=== PATIENT | male | born 1985 | race Two or more races ===

== ENCOUNTER 2022-08-17 17:45 | Inpatient (IN) | payer OTHER ==
[2022-08-17 18:20] VITALS: BMI 33.3
[2022-08-17] MEDS ORDERED: MELATONIN 5 MG TABLETS PO SCH (22:00)
[2022-08-17] MEDS ORDERED: ACETAMINOPHEN 325 MG TABLET (FP) PO PRN (22:42)
[2022-08-17] MEDS ORDERED: LOPERAMIDE HCL 2 MG CAPSULE PO PRN (22:42)
[2022-08-17] MEDS ORDERED: hydrOXYzine PAMOATE 25 MG CAPSULE (FP) PO PRN (22:42)
[2022-08-17] MEDS ORDERED: NICOTINE POLACRILEX 2 MG GUM BC PRN (22:42)
[2022-08-17] MEDS ORDERED: POLYETHYLENE GLYCOL (HEALTHYLAX) 3350 17 GM PACKET PO PRN (22:42)
[2022-08-17] MEDS ORDERED: IBUPROFEN 400 MG TABLET (FP) PO PRN (22:42)
[2022-08-17] MEDS ORDERED: MAGNESIUM HYDROX 2400MG/30ML ORAL SUSPENSION 30 ML CUP PO PRN (22:42)
[2022-08-17] MEDS ORDERED: MAG HYDROX/AL HYDROX/SIMETH 30 ML UNIT-DOSE CUP PO PRN (22:42)
[2022-08-17] MEDS ORDERED: NALOXONE HCL 0.4 MG/ML VIAL IM PRN (22:42)
[2022-08-17] MEDS ORDERED: BENZONATATE 200 MG CAPSULE PO PRN (22:42)
[2022-08-17] MEDS ORDERED: IBUPROFEN 600 MG TABLET (FP) PO PRN (22:42)
[2022-08-17] MEDS ORDERED: NALOXONE HCL (KLOXXADO) 8 MG SPRAY NS PRN (22:42)
[2022-08-17] MEDS ORDERED: BENZOCAINE/MENTHOL (CHLORASEPTIC ) LOZENGE MM PRN (22:42)
[2022-08-17] MEDS ORDERED: guaiFENesin 600 MG TABLET.ER (FP) PO PRN (22:42)
[2022-08-18 02:11] VITALS: BP 143/96; PULSE 93; RESP 18; TEMP 97.7
[2022-08-18] MEDS ORDERED: NICOTINE 14 MG/24 HOURS TOPICAL PATCH TD SCH (10:00)
[2022-08-18] MEDS ORDERED: PRENATAL VITAMINS W/ FOLIC ACID TABLET (FP) PO SCH (10:00)
[2022-08-18 11:16] LABS: HEMATOCRIT 41.6 % (35.4-49); HEMOGLOBIN 13.9 GM/dL (11.7-16.9); MCH 27.6 pg (25.7-33.7); MCHC 33.4 g/dl (32.0-35.9); MEAN CELL VOLUME 82.7 fl (80-96); PLATELET COUNT 297 10^3/uL (134-434); RBC 5.03 M/mm3 (4.00-5.60); RDW 14.2 % (11.9-15.9); WHITE BLOOD COUNT 7.4 K/mm3 (4.0-10.0)
[2022-08-18 11:17] LABS: BLOOD UREA NITROGEN 22.6 mg/dL (7-18); CALCIUM 8.8 mg/dL (8.5-10.1)
[2022-08-18 11:18] LABS: ALBUMIN 3.2 g/dl (3.4-5.0)
[2022-08-18 11:22] LABS: BILIRUBIN,TOTAL 0.3 mg/dL (0.2-1); TOT PROT 6.6 g/dl (6.4-8.2)
[2022-08-18 11:40] LABS: SYPHILIS W/ RPR CONF NON-REACTIVE (NONREACTIVE)
[2022-08-18] MEDS ORDERED: THIAMINE HCL 100 MG TABLET (FP) PO SCH (22:00)
== END 2022-08-18 16:44 | disposition left against medical advice (07) | DRG 770 ==
LOC: YASAS 17:45 → Y5N 08-18 01:33
PROVIDERS: ADMIT Allergy & Immunology; ATTEND Psychiatry & Neurology Pain Medicine
PROC: HZ42ZZZ Group Counseling for Substance Abuse Treatment, Cognitive-Behavioral (ICD-10-PCS; principal; 2022-08-18)
DX: F16.20 Hallucinogen dependence, uncomplicated (principal); F12.20 Cannabis dependence, uncomplicated; F19.24 Other psychoactive substance dependence with psychoactive substance-induced mood disorder; I10 Essential (primary) hypertension; J45.20 Mild intermittent asthma, uncomplicated; M54.50 Low back pain, unspecified; G89.29 Other chronic pain; Z87.820 Personal history of traumatic brain injury
CPT/HCPCS: 36415; 80053; 85027; 86780; 86803; C9803-CS; U0003; U0005

== ENCOUNTER 2022-08-20 10:13 | Inpatient (IN) | payer OTHER ==
[2022-08-20 10:40] VITALS: BMI 35.4
[2022-08-20] MEDS ORDERED: POLYETHYLENE GLYCOL (HEALTHYLAX) 3350 17 GM PACKET PO PRN (11:55)
[2022-08-20] MEDS ORDERED: NICOTINE 10 MG CARTRIDGE (INHALER) IH PRN (11:55)
[2022-08-20] MEDS ORDERED: NALOXONE HCL (KLOXXADO) 8 MG SPRAY NS PRN (11:55)
[2022-08-20] MEDS ORDERED: BENZONATATE 200 MG CAPSULE PO PRN (11:55)
[2022-08-20] MEDS ORDERED: BENZOCAINE/MENTHOL (CHLORASEPTIC ) LOZENGE MM PRN (11:55)
[2022-08-20] MEDS ORDERED: guaiFENesin 600 MG TABLET.ER (FP) PO PRN (11:55)
[2022-08-20] MEDS ORDERED: MAG HYDROX/AL HYDROX/SIMETH 30 ML UNIT-DOSE CUP PO PRN (11:55)
[2022-08-20] MEDS ORDERED: LOPERAMIDE HCL 2 MG CAPSULE PO PRN (11:55)
[2022-08-20] MEDS ORDERED: MAGNESIUM HYDROX 2400MG/30ML ORAL SUSPENSION 30 ML CUP PO PRN (11:55)
[2022-08-20] MEDS ORDERED: NALOXONE HCL 0.4 MG/ML VIAL IM PRN (11:55)
[2022-08-20 16:37] LABS: HEMATOCRIT 41.9 % (35.4-49); HEMOGLOBIN 13.9 GM/dL (11.7-16.9); MCH 27.9 pg (25.7-33.7); MCHC 33.3 g/dl (32.0-35.9); MEAN CELL VOLUME 83.7 fl (80-96); MEAN PLT VOLUME 8.9 fl (7.5-11.1); PLATELET COUNT 306 10^3/uL (134-434); RDW 14.8 % (11.9-15.9); WHITE BLOOD COUNT 10.9 K/mm3 (4.0-10.0)
[2022-08-20 16:40] LABS: ALBUMIN 3.4 g/dl (3.4-5.0); CALCIUM 8.8 mg/dL (8.5-10.1)
[2022-08-20 16:41] LABS: BLOOD UREA NITROGEN 21.1 mg/dL (7-18)
[2022-08-20 16:44] LABS: CREATININE 0.9 mg/dL (0.55-1.3)
[2022-08-20 16:46] LABS: BILIRUBIN,TOTAL 0.2 mg/dL (0.2-1); TOT PROT 6.7 g/dl (6.4-8.2)
[2022-08-20 17:06] LABS: SYPHILIS W/ RPR CONF NON-REACTIVE (NONREACTIVE)
[2022-08-20] MEDS: MELATONIN 5 MG TABLETS PO SCH (21:49)
[2022-08-20] MEDS: THIAMINE HCL 100 MG TABLET (FP) PO SCH (21:49)
[2022-08-21] MEDS: PRENATAL VITAMINS W/ FOLIC ACID TABLET (FP) PO SCH (10:09)
[2022-08-21 11:42] LABS: PH,URINE 5.5 (5.0-8.0); URINE APPEARANCE CLEAR; URINE BILIRUBIN NEGATIVE (NEGATIVE); URINE COLOR YELLOW; URINE GLUCOSE (UA) NEGATIVE (NEGATIVE); URINE KETONE NEGATIVE (NEGATIVE); URINE LEUK ESTERASE NEGATIVE (NEGATIVE); URINE NITRITE NEGATIVE (NEGATIVE); URINE PROTEIN NEGATIVE (NEGATIVE); URINE UROBILINOGEN 0.2 mg/dL (0.2-1.0)
[2022-08-21] MEDS: THIAMINE HCL 100 MG TABLET (FP) PO SCH (21:33)
[2022-08-21] MEDS: MELATONIN 5 MG TABLETS PO SCH (21:33)
[2022-08-21] MEDS: IBUPROFEN 400 MG TABLET (FP) PO PRN (21:34)
[2022-08-22] MEDS: PRENATAL VITAMINS W/ FOLIC ACID TABLET (FP) PO SCH (10:28)
[2022-08-22] MEDS: THIAMINE HCL 100 MG TABLET (FP) PO SCH (21:15)
[2022-08-22] MEDS: MELATONIN 5 MG TABLETS PO SCH (21:15)
[2022-08-23] MEDS: PRENATAL VITAMINS W/ FOLIC ACID TABLET (FP) PO SCH (10:03)
[2022-08-23] MEDS: IBUPROFEN 600 MG TABLET (FP) PO PRN (10:04)
[2022-08-23] MEDS: IBUPROFEN 400 MG TABLET (FP) PO PRN (21:20)
[2022-08-23] MEDS: MELATONIN 5 MG TABLETS PO SCH (21:20)
[2022-08-23] MEDS: THIAMINE HCL 100 MG TABLET (FP) PO SCH (21:20)
[2022-08-24] MEDS: PRENATAL VITAMINS W/ FOLIC ACID TABLET (FP) PO SCH (10:15)
[2022-08-24] MEDS: IBUPROFEN 400 MG TABLET (FP) PO PRN ×2 (10:17→21:39)
[2022-08-24] MEDS: THIAMINE HCL 100 MG TABLET (FP) PO SCH (21:16)
[2022-08-24] MEDS: MELATONIN 5 MG TABLETS PO SCH (21:16)
[2022-08-25] MEDS: PRENATAL VITAMINS W/ FOLIC ACID TABLET (FP) PO SCH (10:00)
[2022-08-25] MEDS: MELATONIN 5 MG TABLETS PO SCH (21:14)
[2022-08-25] MEDS: IBUPROFEN 400 MG TABLET (FP) PO PRN (21:14)
[2022-08-25] MEDS: THIAMINE HCL 100 MG TABLET (FP) PO SCH (21:14)
[2022-08-26] MEDS: PRENATAL VITAMINS W/ FOLIC ACID TABLET (FP) PO SCH (10:12)
[2022-08-26] MEDS: ACETAMINOPHEN 325 MG TABLET (FP) PO PRN (12:36)
[2022-08-26] MEDS: THIAMINE HCL 100 MG TABLET (FP) PO SCH (21:23)
[2022-08-26] MEDS: IBUPROFEN 400 MG TABLET (FP) PO PRN (21:23)
[2022-08-26] MEDS: MELATONIN 5 MG TABLETS PO SCH (21:23)
[2022-08-27] MEDS: IBUPROFEN 400 MG TABLET (FP) PO PRN ×2 (06:45→12:43)
[2022-08-27] MEDS: PRENATAL VITAMINS W/ FOLIC ACID TABLET (FP) PO SCH (11:35)
[2022-08-27] MEDS ORDERED: PRENATAL VITAMINS W/ FOLIC ACID TABLET (FP) PO PRN (12:13)
[2022-08-27] MEDS: MELATONIN 5 MG TABLETS PO SCH (21:18)
[2022-08-27] MEDS: ACETAMINOPHEN 325 MG TABLET (FP) PO PRN (21:18)
[2022-08-27] MEDS: THIAMINE HCL 100 MG TABLET (FP) PO SCH (21:18)
[2022-08-27] MEDS: hydrOXYzine PAMOATE 25 MG CAPSULE (FP) PO PRN (21:19)
[2022-08-28] MEDS: IBUPROFEN 600 MG TABLET (FP) PO PRN (07:49)
[2022-08-28] MEDS ORDERED: METHOCARBAMOL 750 MG TABLET PO PRN (13:55)
[2022-08-28] MEDS: THIAMINE HCL 100 MG TABLET (FP) PO SCH (21:18)
[2022-08-28] MEDS: MELATONIN 5 MG TABLETS PO SCH (21:18)
[2022-08-28] MEDS: METHOCARBAMOL 500 MG TABLET PO PRN (21:19)
[2022-08-28] MEDS: hydrOXYzine PAMOATE 25 MG CAPSULE (FP) PO PRN (21:19)
[2022-08-29] MEDS ORDERED: ALBUTEROL SO4 HFA INHALER IH PRN (15:45)
[2022-08-29] MEDS: IBUPROFEN 400 MG TABLET (FP) PO PRN (16:38)
[2022-08-29] MEDS: hydrOXYzine PAMOATE 25 MG CAPSULE (FP) PO PRN (21:10)
[2022-08-29] MEDS: MELATONIN 5 MG TABLETS PO SCH (21:10)
[2022-08-29] MEDS: METHOCARBAMOL 500 MG TABLET PO PRN (21:10)
[2022-08-29] MEDS: THIAMINE HCL 100 MG TABLET (FP) PO SCH (21:10)
[2022-08-30] MEDS: IBUPROFEN 400 MG TABLET (FP) PO PRN ×2 (09:47→21:12)
[2022-08-30] MEDS: MELATONIN 5 MG TABLETS PO SCH (21:11)
[2022-08-30] MEDS: THIAMINE HCL 100 MG TABLET (FP) PO SCH (21:11)
[2022-08-30] MEDS: hydrOXYzine PAMOATE 25 MG CAPSULE (FP) PO PRN (21:12)
[2022-08-30] MEDS: METHOCARBAMOL 500 MG TABLET PO PRN (21:12)
[2022-08-31] MEDS: METHOCARBAMOL 500 MG TABLET PO PRN (06:18)
[2022-08-31] MEDS: hydrOXYzine PAMOATE 25 MG CAPSULE (FP) PO PRN (21:30)
[2022-08-31] MEDS: THIAMINE HCL 100 MG TABLET (FP) PO SCH (21:30)
[2022-08-31] MEDS: MELATONIN 5 MG TABLETS PO SCH (21:30)
[2022-09-01] MEDS: METHOCARBAMOL 500 MG TABLET PO PRN ×2 (05:56→22:25)
[2022-09-01] MEDS: ACETAMINOPHEN 325 MG TABLET (FP) PO PRN (05:57)
[2022-09-01] MEDS: THIAMINE HCL 100 MG TABLET (FP) PO SCH (21:34)
[2022-09-01] MEDS: MELATONIN 5 MG TABLETS PO SCH (21:34)
[2022-09-01] MEDS: hydrOXYzine PAMOATE 25 MG CAPSULE (FP) PO PRN (21:36)
[2022-09-02] MEDS: IBUPROFEN 600 MG TABLET (FP) PO PRN (07:53)
[2022-09-02] MEDS: THIAMINE HCL 100 MG TABLET (FP) PO SCH (21:49)
[2022-09-02] MEDS: MELATONIN 5 MG TABLETS PO SCH (21:50)
[2022-09-02] MEDS: METHOCARBAMOL 500 MG TABLET PO PRN (21:51)
[2022-09-02] MEDS: hydrOXYzine PAMOATE 25 MG CAPSULE (FP) PO PRN (21:51)
[2022-09-03] MEDS: THIAMINE HCL 100 MG TABLET (FP) PO SCH (21:16)
[2022-09-03] MEDS: MELATONIN 5 MG TABLETS PO SCH (21:16)
[2022-09-03] MEDS: hydrOXYzine PAMOATE 25 MG CAPSULE (FP) PO PRN (21:16)
[2022-09-04] MEDS: METHOCARBAMOL 500 MG TABLET PO PRN ×2 (06:21→21:30)
[2022-09-04] MEDS: IBUPROFEN 400 MG TABLET (FP) PO PRN (06:21)
[2022-09-04] MEDS: THIAMINE HCL 100 MG TABLET (FP) PO SCH (21:29)
[2022-09-04] MEDS: MELATONIN 5 MG TABLETS PO SCH (21:29)
[2022-09-04] MEDS: hydrOXYzine PAMOATE 25 MG CAPSULE (FP) PO PRN (21:30)
[2022-09-05] MEDS: IBUPROFEN 400 MG TABLET (FP) PO PRN (12:18)
[2022-09-05] MEDS: MELATONIN 5 MG TABLETS PO SCH (21:29)
[2022-09-05] MEDS: THIAMINE HCL 100 MG TABLET (FP) PO SCH (21:29)
[2022-09-05] MEDS: hydrOXYzine PAMOATE 25 MG CAPSULE (FP) PO PRN (21:29)
[2022-09-05] MEDS: METHOCARBAMOL 500 MG TABLET PO PRN (21:30)
[2022-09-06] MEDS: METHOCARBAMOL 500 MG TABLET PO PRN ×2 (06:21→21:15)
[2022-09-06] MEDS: IBUPROFEN 400 MG TABLET (FP) PO PRN (06:22)
[2022-09-06] MEDS: THIAMINE HCL 100 MG TABLET (FP) PO SCH (21:15)
[2022-09-06] MEDS: hydrOXYzine PAMOATE 25 MG CAPSULE (FP) PO PRN (21:15)
[2022-09-06] MEDS: MELATONIN 5 MG TABLETS PO SCH (21:15)
[2022-09-06] MEDS: ACETAMINOPHEN 325 MG TABLET (FP) PO PRN (21:16)
[2022-09-07] MEDS: IBUPROFEN 400 MG TABLET (FP) PO PRN (05:55)
[2022-09-07] MEDS: METHOCARBAMOL 500 MG TABLET PO PRN ×2 (05:55→21:33)
[2022-09-07] MEDS: MELATONIN 5 MG TABLETS PO SCH (21:29)
[2022-09-07] MEDS: THIAMINE HCL 100 MG TABLET (FP) PO SCH (21:30)
[2022-09-07] MEDS: IBUPROFEN 600 MG TABLET (FP) PO PRN (21:31)
[2022-09-07] MEDS: hydrOXYzine PAMOATE 25 MG CAPSULE (FP) PO PRN (21:32)
[2022-09-08] MEDS: METHOCARBAMOL 500 MG TABLET PO PRN ×2 (07:20→21:19)
[2022-09-08] MEDS: MELATONIN 5 MG TABLETS PO SCH (21:19)
[2022-09-08] MEDS: THIAMINE HCL 100 MG TABLET (FP) PO SCH (21:19)
[2022-09-08] MEDS: hydrOXYzine PAMOATE 25 MG CAPSULE (FP) PO PRN (21:20)
[2022-09-09] MEDS: MELATONIN 5 MG TABLETS PO SCH (21:09)
[2022-09-09] MEDS: THIAMINE HCL 100 MG TABLET (FP) PO SCH (21:09)
[2022-09-09] MEDS: hydrOXYzine PAMOATE 25 MG CAPSULE (FP) PO PRN (21:10)
[2022-09-09] MEDS: METHOCARBAMOL 500 MG TABLET PO PRN (21:10)
[2022-09-10 06:40] VITALS: BP 113/81; PULSE 85; RESP 18; TEMP 97.4
[2022-09-10] MEDS: METHOCARBAMOL 500 MG TABLET PO PRN (07:44)
== END 2022-09-10 09:16 | disposition home or self-care (01) | DRG 772 ==
LOC: YASAS 10:13 → Y3W 15:30
PROVIDERS: ADMIT Allergy & Immunology; ATTEND Psychiatry & Neurology Pain Medicine
PROC: HZ42ZZZ Group Counseling for Substance Abuse Treatment, Cognitive-Behavioral (ICD-10-PCS; principal; 2022-08-20)
DX: F16.20 Hallucinogen dependence, uncomplicated (principal); F10.10 Alcohol abuse, uncomplicated; F12.10 Cannabis abuse, uncomplicated; F19.24 Other psychoactive substance dependence with psychoactive substance-induced mood disorder; F32.A Depression, unspecified; I10 Essential (primary) hypertension; J45.20 Mild intermittent asthma, uncomplicated; M54.50 Low back pain, unspecified; G89.29 Other chronic pain; G43.909 Migraine, unspecified, not intractable, without status migrainosus; Z87.820 Personal history of traumatic brain injury
CPT/HCPCS: 36415; 80053; 81003; 85027; 86780; 86803; 87811; C9803-CS; U0003; U0005